=== PATIENT | male | born 1995 | race Two or more races ===

== ENCOUNTER 2022-07-10 12:25 | Emergency (ER) | payer OTHER ==
[~2022-07-10] VITALS: Ht 167.6 cm; Wt 2.4 kg
[2022-07-10] MEDS ORDERED: ACETAMINOPHEN 325 MG TABLET ONE (13:00)
[2022-07-10] MEDS ORDERED: ACETAMINOPHEN 325 MG TABLET PO ONE (13:00)
--- NOTE | 2022-07-10 14:52 | NUR ---
[facility] [phone]
--- NOTE | 2022-07-10 15:28 | NUR ---
Patient discharged to home in stable condition. Written and verbal after care instructions given. Patient verbalizes understanding of instruction.
[2022-07-10 15:30] VITALS: BP 120/76
== END 2022-07-10 15:50 | disposition home or self-care (01) ==
LOC: ER 12:25
DX: M79.644 Pain in right finger(s) (principal)
CPT/HCPCS: 73140-TC